=== PATIENT | male | born 1995 | race Two or more races ===

== ENCOUNTER 2017-03-02 01:59 | Emergency (ER) | payer BC, MEDICAID ==
[2017-03-02 02:10] VITALS: BP 152/95
[2017-03-02] MEDS ORDERED: Tetracaine HCl/PF 0.5% 4 ML Bottle EYEBOTH ONE (02:15)
[2017-03-02] MEDS ORDERED: Fluorescein 1 MG Ophth Strip EYEBOTH ONE (02:15)
--- NOTE | 2017-03-02 02:16 | EDM.PDOC ---
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 Onset: Today Duration: Hour(s): Quality: Reports: Burning, Throbbing Severity: Moderate Bilateral Eye Pain Score (Numeric/FACES): 10 - Related Data Allergies Allergy/AdvReac Type Severity Reaction Status Date / Time No Known Allergies Allergy Verified 03/02/17 02:06 Home Meds: Home Meds . [No Known Home Meds] 03/02/17 [History] Past Medical History - Past Health History Medical/Surgical History: Denies Medical/Surgical History HEENT History: Reports: None Cardiovascular History: Reports: None Respiratory History: Reports: None Gastrointestinal History: Reports: None Genitourinary History: Reports: None Musculoskeletal History: Reports: None Neurological History: Reports: None Psychiatric History: Reports: None Endocrine/Metabolic History: Reports: None Hematologic History: Reports: None Immunologic History: Reports: None Oncologic (Cancer) History: Reports: None Dermatologic History: Reports: None Social & Family History - Tobacco Use Smoking Status *Q: Never Smoker - Recreational Drug Use Recreational Drug Use: No ED ROS GENERAL - Review of Systems Review Of Systems: ROS reveals no pertinent complaints other than HPI. ED EXAM GENERAL W FULL EYE - Physical Exam Exam: See Below Exam Limited By: No Limitations General Appearance: Alert, Moderate Distress Eye Exam: Bilateral Eye: EOMI, PERRL Eyelids: Bilateral: Normal Appearance Conjunctiva & Sclera: Bilateral: Injected Cornea Exam: Bilateral: Examined with Flourescein Extraocular Movements: Bilateral: Intact Pupils: Normal Accommodation Pupillary Size: Bilateral: 3 mm Pupillary Reaction: Bilateral: Brisk Ears: Normal External Exam Throat/Mouth: Normal Voice Respiratory/Chest: No Respiratory Distress Cardiovascular: Regular Rate, Rhythm Neurological: Alert, Oriented Psychiatric: Normal Affect Skin Exam: Warm, Dry Course - Vital Signs Last Recorded V/S: Last Vital Signs Temp 97.8 F 03/02/17 02:07 Pulse 66 03/02/17 02:07 Resp 18 03/02/17 02:07 BP 152/95 H 03/02/17 02:07 Pulse Ox 100 03/02/17 02:07 - Orders/Labs/Meds Meds: Medications Discontinued Medications Generic Name Dose Route Start Last Admin Trade Name Jessica PRN Reason Stop Dose Admin Bacitracin/Polymyxin B Sulfate Confirm 03/02/17 02:30 03/02/17 03:48 Polysporin Ophth Oint Administered 03/02/17 02:31 Not Given Dose 3.5 gm .ROUTE .STK-MED ONE Fluorescein Sodium 1 mg 03/02/17 02:15 03/02/17 02:24 Ful-Arianna EYEBOTH 03/02/17 02:16 1 mg ONETIME ONE Administration Oxycodone/Acetaminophen Confirm 03/02/17 02:30 03/02/17 03:48 Percocet 325-5 Mg Administered 03/02/17 02:31 Not Given Dose 1 tab .ROUTE .STK-MED ONE Tetracaine HCl 1 ml 03/02/17 02:15 03/02/17 02:24 Tetracaine 0.5% Steri-Unit Brenda EYEBOTH 03/02/17 02:16 1 ml ASDIRECTED ONE Administration Departure - Departure Time of Disposition: 02:26 Disposition: Home, Self-Care 01 Condition: Good Clinical Impression: Exposure to welding light (arc), initial encounter Qualifiers: Encounter type: initial encounter Qualified Code(s): W89.0XXA - Exposure to welding light (arc), initial encounter Welders' flash Qualifiers: Laterality: bilateral Qualified Code(s): H16.133 - Photokeratitis, bilateral - Discharge Information Referrals: PCP,None [Primary Care Provider] - Forms: ED Department Discharge Additional Instructions: dark glasses bacitracin opthalmic ointment to both eyes cool compresses percocet 5/325 one at bed
[2017-03-02] MEDS ORDERED: Acetaminophen/oxyCODONE 325-5 MG Tab ONE (02:30)
[2017-03-02] MEDS ORDERED: Bacitracin/Polymyxin B Ophth Oint 3.5 GM Tube EYEBOTH ONE (02:30)
[2017-03-02] MEDS ORDERED: Acetaminophen/oxyCODONE 325-5 MG Tab PO ONE (02:30)
[2017-03-02] MEDS ORDERED: Bacitracin/Polymyxin B Ophth Oint 3.5 GM Tube ONE (02:30)
== END 2017-03-02 02:38 | disposition home or self-care (01) ==
LOC: DL.ED 01:59
DX: H16.133 Photokeratitis, bilateral (principal); W89.0XXA Exposure to welding light (arc), initial encounter
CPT/HCPCS: 99282; A9270

== ENCOUNTER 2024-10-05 14:56 | Emergency (ER) | payer SELFPAY ==
[2024-10-05] MEDS ORDERED: Sodium Chloride 0.9% 10 ML Syringe FLUSH PRN (15:24)
[2024-10-05] MEDS: Iopamidol 612 MG/ML 100 ML Bottle IVPUSH ONE (15:41)
[2024-10-05 15:43] LABS: BASOPHILS PERCENT AUTO 0.3 % (0.0-1.0); EOSINOPHILS PERCENT AUTO 0.6 % (1.0-3.0); HEMOGLOBIN 14.2 g/dL (14.0-18.0); LYMPHOCYTES PERCENT AUTO 29.8 % (20.5-50.1); MEAN CORPUSCULAR HGB CONC 33.8 g/dL (33.0-35.0); MEAN CORPUSCULAR VOLUME 88.6 fL (80-100); NEUTROPHILS PERCENT AUTO 61.3 % (42.2-75.2); PLATELET COUNT,PLT 352 10^3/uL (150-450); RED BLOOD CELL COUNT 4.74 10^6/uL (4.6-6.2); WHITE BLOOD CELL COUNT,WBC 9.3 10^3/uL (5.0-10.0)
[2024-10-05 16:39] VITALS: BP 139/72; PULSE 88
== END 2024-10-05 16:32 | disposition home or self-care (01) ==
LOC: DL.ED 14:56
DX: S31.119A Laceration without foreign body of abdominal wall, unspecified quadrant without penetration into peritoneal cavity, initial encounter (principal); X99.1XXA Assault by knife, initial encounter
CPT/HCPCS: 36415; 74177; 85025; 99283; Q9967